=== PATIENT | female | born 1965 | race Caucasian/White ===

== ENCOUNTER 2017-06-03 10:21 | Day surgery (SDC) | payer BC ==
[2017-05-28 14:02] VITALS: BMI 33.0
[2017-06-03 12:28] VITALS: PULSE 82; TEMP 98.2
[2017-06-03 12:56] VITALS: BP 130/70
== END 2017-06-03 12:57 | disposition home or self-care (01) ==
LOC: FASU-ENDO 10:21
PROVIDERS: ATTEND Internal Medicine Gastroenterology
PROC: 0DJD8ZZ Inspection of Lower Intestinal Tract, Via Natural or Artificial Opening Endoscopic (ICD-10-PCS; principal; 2017-06-03 12:06)
DX: Z12.11 Encounter for screening for malignant neoplasm of colon (principal); K57.30 Diverticulosis of large intestine without perforation or abscess without bleeding
CPT/HCPCS: 84703